=== PATIENT | male | born 1995 ===

== ENCOUNTER 2024-08-08 19:32 | Emergency (ER) | payer OTHER ==
[2024-08-08 20:45] VITALS: RESP 18; O2SAT 99
--- NOTE | 2024-08-08 20:54 | ERPHSYRPT ---
- History of Present Illness Time Seen by Provider: 08/08/24 20:48 Source: patient Exam Limitations: no limitations Patient Subjective Stated Complaint: pt states that he had a tick bite him Triage Nursing Assessment: pt ambulated into the er; pt is axo x4; anxious; c/o insect bite; pt denies pain; no redness, swelling, puncture sameera present; skin PDW; no respiratory distress present; vitals wnl Physician History: Patient presents emergency room after noticing a tick attached to his right lower abdomen earlier today. Patient brought in the specimen and confirmed it is a tic. He says that this was on him today and would not of been from a previous day. No rash. Timing/Duration: today Quality: other (na) Location: none Possible Causes: insect bite Associated Symptoms: denies symptoms Allergies/Adverse Reactions: No Known Drug Allergies Allergy (Unverified 08/08/24 20:31) Hx Influenza Vaccination/Date Given: No Hx Pneumococcal Vaccination/Date Given: No Immunizations Up to Date: No Travel Risk - International Travel Have you traveled outside of the country in past 3 weeks: No - Emerging Infectious Disease Are you exhibiting symptoms associated with any current EIDs: No - Review of Systems All Other Systems: Reviewed and Negative - Past Medical History Pertinent Past Medical History: No - Past Surgical History Past Surgical History: No - Social History Smoking Status: Never smoker Exposure to second hand smoke: No Drug Use: none - Social Determinants of Health Will the patient participate in the screening: Yes Do you worry about a steady place to live?: No Do you have any problems with any of the following?: No known problems In the past 12 months,have you had to go without utilities?: No Transportation Issues: No Has anyone in your support network made you feel unsafe?: No Have you or anyone in your house had to go w/o enough food: No - Nursing Vital Signs Nursing Vital Signs: Initial Vital Signs Temperature 95.9 F 08/08/24 20:32 Pulse Rate 58 L 08/08/24 20:32 Respiratory Rate 18 08/08/24 20:32 Blood Pressure 128/65 08/08/24 20:32 O2 Sat by Pulse Oximetry 99 08/08/24 20:32 Pain Scale Pain Intensity 0 - Physical Exam General Appearance: no apparent distress Skin Exam: normal color, warm, dry, No rash SpO2: 99 - Course Nursing assessment & vital signs reviewed: Yes - Progress Progress: unchanged Progress Note: 08/08/24 20:51 Discussed treatment options with the patient. I recommended that he likely does not need prophylactic treatment with doxycycline due to length of tick attachment, but he is concerned about Lyme disease or other tickborne illness so Doxy cyclin prescribed to pharmacy. Counseled pt/family regarding: diagnosis Medical Desision Making - Diagnostic Testing Diagnostic test were ordered, analyzed, and reviewed by me: No - Risk of complications The pt has a mod risk of morbidity or mortality based on: Need for prescription drug management - Departure Departure Disposition: Home Clinical Impression: Tick bite of abdomen Condition: Good Critical Care Time: No Instructions: Insect Bites and Stings (DC) Prescriptions: Doxycycline Hyclate 100 mg PO BID 10 Days #20 tablet
[2024-08-08 21:09] VITALS: BP 117/70; PULSE 55; TEMP 97.8
== END 2024-08-08 21:00 | disposition home or self-care (01) ==
LOC: ED 19:32
DX: S30.861A Insect bite (nonvenomous) of abdominal wall, initial encounter (principal); W57.XXXA Bitten or stung by nonvenomous insect and other nonvenomous arthropods, initial encounter; Z79.899 Other long term (current) drug therapy
CPT/HCPCS: 99283